=== PATIENT | male | born 2005 | race Caucasian/White ===

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

== ENCOUNTER → 2023-07-21 | Outpatient (REF) | payer OTHER, BC | LOC: M LAB REF 20:58 | PROVIDERS: ATTEND Physician Assistant | DX: J02.9 Acute pharyngitis, unspecified (principal) ==

== ENCOUNTER → 2023-11-08 | Outpatient (REF) | payer BC ==
[2023-11-09 14:35] LABS: GC DNA AMPLIFICATION NEGATIVE (NEGATIVE)
== END ==
LOC: M LAB REF 12:10
PROVIDERS: ATTEND Pediatrics
DX: Z11.3 Encounter for screening for infections with a predominantly sexual mode of transmission (principal)

== ENCOUNTER 2024-02-06 06:04 | Day surgery (SDC) | payer BC ==
[~2024-02-06] VITALS: Ht 175.3 cm; Wt 59.8 kg
[2024-02-06] MEDS ORDERED: NS 1,000 ML IV SCH ×2 (06:20→09:40)
[2024-02-06] MEDS: CelecoXIB 400 MG CAP PO ONE (06:45)
[2024-02-06] MEDS ORDERED: fentaNYL 250 MCG/5 ML INJECTION As Ordered ONE (07:07)
[2024-02-06] MEDS ORDERED: KETOROLAC 60MG 2ML VIAL As Ordered ONE (07:08)
[2024-02-06] MEDS ORDERED: propofoL 200 MG/20 ML VIAL As Ordered ONE (07:08)
[2024-02-06] MEDS ORDERED: MIDAZOLAM INJ 2MG/2ML VIAL As Ordered ONE (07:08)
[2024-02-06] MEDS ORDERED: LIDOCAINE 2% 100MG/5ML SDV (FOR ANES.) As Ordered ONE (07:08)
[2024-02-06] MEDS ORDERED: ONDANSETRON 4MG 2ML VIAL As Ordered ONE (07:08)
[2024-02-06] MEDS ORDERED: ROCURONIUM BROMIDE 50MG/5ML VIAL As Ordered ONE (07:08)
[2024-02-06] MEDS ORDERED: ACETAMINOPHEN 1000MG 100ML IV BAG As Ordered ONE (07:08)
[2024-02-06] MEDS ORDERED: SUGAMMADEX SODIUM 500 MG/5 ML VIAL (BRIDION) As Ordered ONE (07:08)
[2024-02-06] MEDS: ceFAZolin SOD 2 GM in IV 1 EA IV ONE (07:56)
[2024-02-06] MEDS ORDERED: GLYCOPYRROLATE INJ 0.2 MG/ML 2 ML VIAL As Ordered ONE (08:15)
[2024-02-06] MEDS: LIDOCAINE 1% SDV 30ML VIAL As Ordered ONE (09:15)
[2024-02-06] MEDS ORDERED: fentaNYL 100 MCG/2 ML INJECTION IV PRN (09:40)
[2024-02-06] MEDS: oxyCODONE 5MG TAB PO PRN (09:46)
[2024-02-06] MEDS: HYDROMORPHONE HCL 0.5 MG/ 0.5 ML SYRINGE IV PRN (09:46)
[2024-02-06] MEDS: ONDANSETRON 4MG 2ML VIAL IV PRN (09:46)
[2024-02-06] MEDS: NORCO, ANEXSIA 5/325MG TABLET (HYDROcodone/ACETAMINOPHEN) PO PRN (11:06)
[2024-02-06 11:15] VITALS: BP 115/62; TEMP 97.6; O2SAT 97
== END 2024-02-06 11:15 | disposition home or self-care (01) ==
LOC: M SDC 06:04
PROVIDERS: ATTEND Surgery
DX: K40.90 Unilateral inguinal hernia, without obstruction or gangrene, not specified as recurrent (principal); F17.290 Nicotine dependence, other tobacco product, uncomplicated
CPT/HCPCS: 49650; C1781; J0131; J0665; J0690; J1100; J1596; J1885; J2250; J2405; J3010; S2900